=== PATIENT | female | born 1950 | race Caucasian/White ===

== ENCOUNTER 2017-06-06 10:01 | Emergency (ER) | payer MEDICARE ==
[~2017-06-06] VITALS: Ht 157.5 cm; Wt 58.0 kg
[~2017-06-06 10:01] MED LIST: BIOIDENTICAL HORMONE; TYLE3 PO
[2017-06-06 10:06] VITALS: BP 150/67; PULSE 102; RESP 16; TEMP 97.7; O2SAT 95
[2017-06-06] MEDS ORDERED: PERC7.5T13 PO (10:14)
[2017-06-06] MEDS ORDERED: POTA-163 PO (10:14)
[2017-06-06] MEDS ORDERED: FURO1TAB60 PO (10:14)
--- NOTE | 2017-06-06 10:46 | PD ---
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 Managing with diuretics and pain medications. Reports a new sensation that her abdomen feels as if going to burst. Denies any nausea vomiting. Reports some dyspnea secondary to the ascites. Denies any nausea vomiting diarrhea or fever. Denies any new chest pain or urinary symptoms. PFSH Past Medical History Heart Rhythm Problems: No Cancer: Yes (BASAL CELL CARCINOMA) Cardiac Catheterization: No Cardiovascular Problems: No High Cholesterol: No Congestive Heart Failure: No Diabetes: No Diminished Hearing: No Hypertension: No Neurologic: Yes (BRAIN BLEED FROM FALL IN 1996) Myocardial Infarction: No Influenza Vaccination: No ?: Not Menopausal: Yes Past Surgical History Coronary Artery Bypass Graft: No Genitourinary Surgery: Yes (URETHRAL STENOSIS DILATION) Tonsillectomy: Yes Other Surgery: Yes (BASAL CELL CARCINOMA) Family History Family Myocardial Infarction: Yes Social History Alcohol Use: No Tobacco Use: No Substance Use: No Allergies-Medications (Allergen,Severity, Reaction): Coded Allergies: NSAIDS (Non-Steroidal Anti-Inflamma (Verified Allergy, Unknown, 06/06/17) aspirin (Unverified Adverse Reaction, Severe, SICK TO [facility], 06/06/17) PT ABLE TO TAKE AND HAS TAKEN IN THE PAST BUT GETS UPSET STOMACH Reported Meds & Prescriptions Reported Meds & Active Scripts Active Reported Potassium Chloride ER (Potassium Chloride) 20 Meq Tab 20 Meq PO DAILY Lasix (Furosemide) 40 Mg Tab 40 Mg PO BID Percocet (Oxycodone-Acetaminophen) 7.5-325 mg Tab 1 Tab PO Q4H PRN Review of Systems General / Constitutional: No: Fever Eyes: No: Visual changes HENT: No: Headaches Cardiovascular: No: Chest Pain or Discomfort Respiratory: No: Shortness of Breath Gastrointestinal: Positive: Other (distention with ascites), No: Abdominal Pain Genitourinary: No: Dysuria Musculoskeletal: No: Pain Skin: No Rash Neurologic: No: Weakness Psychiatric: No: Depression Endocrine: No: Polydipsia Hematologic/Lymphatic: No: Easy Bruising Physical Exam Narrative GENERAL: Well-nourished, well-developed patient. SKIN: Focused skin assessment warm/dry. HEAD: Normocephalic. EYES: No scleral icterus. No injection or drainage. NECK: Supple, trachea midline. No JVD or lymphadenopathy. CARDIOVASCULAR: Regular rate and rhythm without murmurs, gallops, or rubs. RESPIRATORY: Breath sounds equal bilaterally. No accessory muscle use. GASTROINTESTINAL: Significantly distended mildly tender with fluid wave MUSCULOSKELETAL: No cyanosis, or edema. BACK: Nontender without obvious deformity. No CVA tenderness. Data Data Last Documented VS Vital Signs Date Time Temp Pulse Resp B/P (MAP) Pulse Ox O2 Delivery O2 Flow Rate FiO2 06/06/17 10:06 97.7 102 16 150/67 (94) 95 Orders Orders Cbc No Diff, Includes Plts (06/06/17 11:14) Act Partial Throm Time (Ptt) (06/06/17 11:14) Prothrombin Time / Inr (Pt) (06/06/17 11:14) MDM Medical Decision Making Medical Screen Exam Complete: Yes Emergency Medical Condition: Yes Differential Diagnosis Ascites, free air, ischemic bowel, uterine cancer with metastases Narrative Course Assessment and plan discussed with patient and friend at bedside. Outpatient ultrasound protocol initiated for therapeutic ultrasound-guided paracentesis. Diagnosis Primary Impression: Ascites Qualified Codes: R18.0 - Malignant ascites Patient Instructions: General Instructions Additional Instructions: Encourage rest, patient has pain medication for discomfort. Copy of prescription provided and discussed, call ultrasound automotive sales specialist her for procedure. Encouraged to return him or trauma with any onset of new symptoms. Med/Other Pt SpecificInfo: Prescription(s) given Disposition: 01 DISCHARGE HOME Condition: Good Hernan Haynes MD Jun 06, 2017 10:46
[2017-06-06 11:23] VITALS: BP 139/84; PULSE 90; RESP 18; O2SAT 97
[2017-06-06 11:30] LABS: HEMATOCRIT 37.5 % (35.0-46.0); MEAN CELL VOLUME 85.2 FL (80.0-100.0); MEAN CORPUSCULAR HEMOGLOBIN 27.8 PG (27.0-34.0); MEAN CORPUSCULAR HGB CONC 32.6 % (32.0-36.0); PLATELET COUNT 677 TH/MM3 (150-450); RED CELL DISTRIBUTION WIDTH 13.4 % (11.6-17.2); WHITE BLOOD COUNT 7.7 TH/MM3 (4.0-11.0)
[2017-06-06 11:37] LABS: REVIEW FLAG FINAL
[2017-06-06 11:44] LABS: APTT (PATIENT) 29.2 SEC (24.3-30.1); PROTHROMBIN TIME - PATIENT 10.9 SEC (9.8-11.6)
== END 2017-06-06 11:32 | disposition home or self-care (01) ==
LOC: PHED 10:01
DX: R18.8 Other ascites (principal); Z85.828 Personal history of other malignant neoplasm of skin; Z79.899 Other long term (current) drug therapy
CPT/HCPCS: 85027; 85610; 85730; 99283